=== PATIENT | female | born 1975 | race Caucasian/White ===

== ENCOUNTER 2019-01-19 07:43 | Emergency (ER) | payer OTHER ==
[~2019-01-19] VITALS: Ht 162.6 cm; Wt 52.3 kg
[~2019-01-19 07:43] MED LIST: FER325 PO; IBUP-1561 PO; IBUP-1982 PO; MULT1CAP20 PO; TRAM50TA2 PO
[2019-01-19 07:45] VITALS: Ht 162.6 cm; Wt 52.3 kg
[2019-01-19] MEDS ORDERED: morphine 4 MG/ML VIAL IV STA (07:51)
[2019-01-19] MEDS ORDERED: ONDANSETRON 4 MG INJ IV STA (07:51)
[2019-01-19] MEDS ORDERED: SOD CHLORIDE 0.9% 1,000 ML IV STA (07:51)
--- NOTE | 2019-01-19 07:56 | ERD ---
ER Documentation Chief Complaint Chief Complaint came from [facility] - headache, abdominal pain , vomitting, double visoin HPI 43-year-old female presenting with complaints of lower abdominal pain that started this morning with associated vomiting and syncopal episode. She also had an associated headache prior to her syncopal episode. She was complaining of some vision abnormalities. Otherwise the patient is not providing much information as she is in severe pain and writhing around in the gurney. She states that her mother just of a ruptured brain aneurysm. Otherwise history is limited. ROS All systems reviewed and are negative except as per history of present illness. Medications Home Meds Active Scripts Tramadol HCl (Tramadol HCl) 50 Mg Tablet, 50 MG PO Q6 PRN for PAIN, #20 TAB Prov:SHARYN DEL TORO MD 01/19/19 Ferrous Sulfate* (Ferrous Sulfate*) 325 Mg Tabec, 325 MG PO BID, #60 TAB Prov:SHARYN DEL TORO MD 01/19/19 Ibuprofen* (Motrin*) 400 Mg Tab, 400 MG PO Q6H PRN for PAIN AND OR ELEVATED TEMP, #30 TAB Prov:SHARYN DEL TORO MD 01/19/19 Reported Medications Multivitamin (Multivitamins) 1 Each Capsule, 1 EACH PO DAILY, CAP 01/19/19 Ibuprofen* (Ibuprofen*) 200 Mg Capsule, 600 MG PO Q 14D PRN for PAIN, CAP 01/19/19 Allergies Allergies: Coded Allergies: No Known Allergy (Unverified , 01/19/19) PMhx/Soc Medical and Surgical Hx: pt denies Medical Hx, pt denies Surgical Hx, Unable to obtain FmHx Family History: other (Mother of brain aneurysm rupture) Physical Exam Vitals Vital Signs Date Temp Pulse Resp B/P (MAP) Pulse Ox O2 O2 Flow FiO2 Time Delivery Rate 01/19/19 65 20 104/60 99 Room Air 12:01 (75) 01/19/19 62 18 112/57 99 Room Air 10:00 (75) 01/19/19 98.4 68 28 115/54 95 07:45 (74) Physical Exam Const: In significant distress secondary to pain, writhing around in the gurney. Diaphoretic. Head: Atraumatic Eyes: Normal Conjunctiva ENT: Normal External Ears, Nose and Mouth. Neck: Full range of motion. No meningismus. Resp: Clear to auscultation bilaterally Cardio: Regular rate and rhythm, no murmurs Abd: Soft, suprapubic moderate tenderness to palpation, non distended. No rebound or guarding normal bowel sounds Skin: Pale, cool, clammy Back: No midline or flank tenderness Ext: No cyanosis, or edema Neur: Awake and alert Psych: Normal Mood and Affect Result Diagram: 01/19/19 0800 01/19/19 0800 Results 24 hrs Laboratory Tests Test 01/19/19 08:00 01/19/19 09:59 01/19/19 10:50 White Blood Count 14.4 10^3/ul Red Blood Count 4.64 10^6/ul Hemoglobin 8.4 g/dl Hematocrit 31.8 % Mean Corpuscular Volume 68.5 fl Mean Corpuscular Hemoglobin 18.1 pg Mean Corpuscular 26.4 g/dl Hemoglobin Concent Red Cell Distribution Width 17.5 % Platelet Count 482 10^3/UL Mean Platelet Volume 9.4 fl Immature Granulocytes % 0.400 % Neutrophils % 57.9 % Lymphocytes % 28.9 % Monocytes % 8.6 % Eosinophils % 3.7 % Basophils % 0.5 % Nucleated Red Blood Cells % 0.0 /100WBC Immature Granulocytes # 0.060 10^3/ul Neutrophils # 8.4 10^3/ul Lymphocytes # 4.2 10^3/ul Monocytes # 1.2 10^3/ul Eosinophils # 0.5 10^3/ul Basophils # 0.1 10^3/ul Nucleated Red Blood Cells # 0.0 10^3/ul Prothrombin Time 12.6 Sec Prothrombin Time Ratio 1.0 INR International Normalized Ratio 0.93 Activated Partial Thromboplast 22.6 Sec Time Sodium Level 140 mmol/L Potassium Level 3.6 mmol/L Chloride Level 108 mmol/L Carbon Dioxide Level 14 mmol/L Anion Gap 18 Blood Urea Nitrogen 14 mg/dl Creatinine 1.17 mg/dl Est Glomerular Filtrat Rate mL/min 51 mL/min Glucose Level 191 mg/dl Calcium Level 10.0 mg/dl Total Bilirubin 0.7 mg/dl Direct Bilirubin 0.00 mg/dl Indirect Bilirubin 0.7 mg/dl Aspartate Amino Transf (AST/SGOT) 32 IU/L Alanine 18 IU/L Aminotransferase (ALT/SGPT) Alkaline Phosphatase 73 IU/L Total Protein 7.3 g/dl Albumin 4.8 g/dl Globulin 2.50 g/dl Albumin/Globulin Ratio 1.92 Serum HCG, Qualitative NEGATIVE POC Venous Lactate 1.3 mmol/L Lactic Acid Level 1.0 mmol/L Current Medications Medications Dose Sig/Antony Start Time Status Last (Trade) Ordered Route PRN Stop Time Admin Dose Reason Admin Sodium 1,000 ml @ Q1H STAT 01/19/19 DC 01/19/19 Chloride 1,000 mls/hr IV 07:51 08:05 01/19/19 08:50 Morphine 4 mg ONCE STAT 01/19/19 DC 01/19/19 Sulfate IV 07:51 08:04 (morphine) 01/19/19 07:57 Ondansetron 4 mg ONCE STAT 01/19/19 DC 01/19/19 HCl (Zofran IV 07:51 08:05 Inj) 01/19/19 07:57 Morphine 2 mg ONCE STAT 01/19/19 DC 01/19/19 Sulfate IV 08:18 08:18 (morphine) 01/19/19 08:19 Sodium 1,570 ml BOLUS OVER 2 01/19/19 DC 01/19/19 Chloride HOURS STAT 09:09 09:09 (NS) IV* 01/19/19 09:12 IV Flush 10 ml STK-MED 01/19/19 DC 01/19/19 (NS 10 ml) ONCE .ROUTE 09:28 09:42 01/19/19 09:29 Sodium 100 ml @ ud STK-MED 01/19/19 DC 01/19/19 Chloride ONCE .ROUTE 09:28 09:42 01/19/19 09:29 Iohexol 150 ml STK-MED 01/19/19 DC 01/19/19 (Omnipaque ONCE .ROUTE 09: 09:42 300mg/ ml) 01/19/19 09:29 Procedures/MDM EMERGENT LABS AND DIAGNOSTIC STUDIES: Lab Results above were reviewed and interpreted by me. CBC: Leukocytosis, likely stress response. anemia CMP: Low CO2 was slightly elevated creatinine, unknown chronicity. No evidence of clinically significant electrolyte abnormality, hypoglycemia, liver disease, or biliary obstruction Lactate within normal limits without evidence of sepsis or tissue hypoperfusion UA: no evidence of infection negative Radiology Results as interpreted by Radiology below were reviewed by Alda Del Toro MD: CT brain shows no acute abnormalities Ultrasound pelvis: Fibroid uterus. 2.8 cm Right ovarian cyst. Follow-up pelvic ultrasound in 1-2 months recommended to ensure stability. Bilateral ovarian flow. Correlate with test to exclude ectopic or abnormal . CT abdomen and pelvis: IMPRESSION: 1. Enlarged uterus with heterogeneously enhancing mass along the posterior aspe ct of the uterus measuring up to 6.7 cm representing a degenerating uterine fibroid. 2. Small amount of fluid in the pelvis with mild peritoneal enhancement. Although this may be physiologic, given mild peritoneal enhancement, an inflammatory process in the pelvis cannot be ruled out. 3. Nonobstructive lower pole right renal calculus. Initial Nursing notes reviewed. Previous Medical Records requested via the Electronic Health Record. EMERGENCY DEPARTMENT COURSE / MEDICAL DECISION MAKING: Patient is presenting with severe abdominal pain with vaginal bleeding. Initially the patient looked very ill, was pale and diaphoretic. Labs were done showing evidence of leukocytosis and thrombocytosis with anemia. Patient states that she does have chronic anemia upon further review. She does endorse progressively heavier and more painful periods. It seems that she was diagnosed in the past with a fibroid about 1 cm. Today that the fibroid was noted to be much larger and likely degenerative. I suspect that this is the cause of her pain. After IV fluids and pain control, her symptoms significantly improved. She was much more well-appearing on exam. She was noted to have a low CO2, however I feel that was likely secondary to hyperventilation on arrival. There is no evidence of lactic acidosis. I feel the patient is stable for discharge. She is not having any severe vaginal bleeding. I have a low suspicion for ovarian torsion or PID. I did recommend iron for anemia. I gave her recommendations for bilingual trainer she can follow-up with. I also recommended follow-up with a general primary doctor as she is very concerned about aneurysms. I did offer her admission but the patient would rather go home she f eels much better. Return precautions were discussed. All questions answered. She was provided with a copy of her studies from today. Departure Diagnosis: Primary Impression: Anemia Anemia type: unspecified type Qualified Codes: D64.9 - Anemia, unspecified Additional Impressions: Uterine fibroid Uterine leiomyoma location: unspecified location Qualified Codes: D25.9 - Leiomyoma of uterus, unspecified Suprapubic pain Condition: Stable SHARYN DEL TORO MD Jan 19, 2019 07:56
[2019-01-19] MEDS ORDERED: morphine 2 MG INJ IV STA (08:18)
[2019-01-19] MEDS ORDERED: SODIUM CHLORIDE 0.9% 1L BAG IV* STA (09:09)
[2019-01-19] MEDS ORDERED: IOHEXOL 300MG/ML 150 ML BTL ONE (09:28)
[2019-01-19] MEDS ORDERED: SOD CHLORIDE 0.9% 100 ML ONE (09:28)
[2019-01-19 12:01] VITALS: BP 104/60; PULSE 65; RESP 20
== END 2019-01-19 12:02 | disposition home or self-care (01) ==
LOC: E/R 07:43
DX: D64.9 Anemia, unspecified (principal); D25.9 Leiomyoma of uterus, unspecified; R10.2 Pelvic and perineal pain; R40.2142 Coma scale, eyes open, spontaneous, at arrival to emergency department; R40.2252 Coma scale, best verbal response, oriented, at arrival to emergency department; R40.2362 Coma scale, best motor response, obeys commands, at arrival to emergency department
CPT/HCPCS: 36415; 70450; 74177; 76856; 80053; 83605; 84703; 85025; 85610; 85730; 86850; 86900; 86901; 87040; 96374; 96375; 99285; J2270; J2405; J7030; Q9967